=== PATIENT | female | born 1985 | race Caucasian/White ===

== ENCOUNTER 2017-03-02 13:06 | Emergency (ER) | payer MEDICAID ==
[2017-03-02] MEDS ORDERED: Acetaminophen/oxyCODONE 325-10 MG Tab PO ONE (14:36)
--- NOTE | 2017-03-02 16:10 | EDM.PDOC ---
ED HPI GENERAL MEDICAL PROBLEM - General Chief Complaint: Abdominal Pain Stated Complaint: LT SIDE PAIN Time Seen by Provider: 03/02/17 13:14 Source of Information: Reports: Patient, Other History Limitations: Reports: No Limitations - History of Present Illness INITIAL COMMENTS - FREE TEXT/NARRATIVE: This patient comes in complaining of left lower quadrant abdominal pain. This started last night. She has a history of similar pain and underwent a hysterectomy within the last couple of months. The ovaries were left intact. She refers to this as a partial hysterectomy. She did have some hemorrhagic cyst in the left ovary which caused pain afterwards. The pain she has now is very similar to what she had in the past. She denies any difficulty voiding. She denies any fever. There's been no vaginal discharge. She's having normal bowel movements. She said the pain is worse when she bends or when she is pushing at stool there is nothing that seems to make the pain better. She did feel kind of hot last night. There's been no vomiting. This patient says she is about in the middle of her monthly cycle. She describes her cycles as being irregular however. 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 - Past Surgical History Female Surgical History: Reports: Hysterectomy, Tubal Ligation Other Female Surgeries/Procedures: has a missing tubal clamp Social & Family History - Tobacco Use Smoking Status *Q: Current Every Day Smoker Years of Tobacco use: 20 Packs/Tins Daily: 0.5 ED ROS GENERAL - Review of Systems Review Of Systems: See Below Constitutional: Reports: Other (See history of present illness) HEENT: Reports: No Symptoms Respiratory: Reports: No Symptoms Cardiovascular: Reports: No Symptoms Endocrine: Reports: No Symptoms (See history of present illness) GI/Abdominal: Reports: Other (See history of present illness) : Reports: Other (See history of present illness) Musculoskeletal: Reports: No Symptoms Skin: Reports: No Symptoms Neurological: Reports: No Symptoms Psychiatric: Reports: No Symptoms ED EXAM, RENAL/ - Physical Exam Exam: See Below Exam Limited By: No Limitations General Appearance: Alert, WD/WN, Mild Distress (She looks fairly comfortable but says she's having a lot of left lower quadrant abdominal pain) Eye Exam: Bilateral Eye: Normal Inspection Ears: Normal External Exam Throat/Mouth: Normal Inspection Head: Atraumatic Neck: Normal Inspection Respiratory/Chest: Lungs Clear Cardiovascular: Regular Rate, Rhythm GI/Abdominal: Soft (He has on an abdominal binder because of his recent surgery. That was not removed), Other (I can palpate stool in the right lower quadrant which is nontender. I can palpate a little bit of stool in the descending colon which is generally nontender but when I follow it inferiorly down to the pelvic brim she has a lot of tenderness in that area. The feel like the tenderness is probably from the adnexa.) (Female) Exam: Normal External Exam, Normal Speculum Exam (No cervix seen), Adnexal Tenderness (There is moderate to severe left adnexal tenderness), Other Rectal (Female) Exam: Normal Exam (Rectal nontender), Tenderness (Tenderness is only felt in the left adnexa). No: Fecal Impaction Back Exam: Normal Inspection Extremities: Normal Inspection Neurological: Alert, Oriented, CN II-XII Intact, Normal Cognition, No Motor/ Sensory Deficits Psychiatric: Normal Affect Skin Exam: Warm, Dry Course - Vital Signs Last Recorded V/S: Last Vital Signs Temp 36.6 C 03/02/17 13:31 Pulse 66 03/02/17 13:31 Resp 14 03/02/17 13:31 BP 122/69 03/02/17 13:31 Pulse Ox 95 03/02/17 13:31 - Orders/Labs/Meds Orders: Active Orders 24 hr Category Date Time Status Pelvis Non OB Comp [US] Stat Exams 03/02/17 14:22 Taken Transvaginal Non OB [US] Stat Exams 03/02/17 Taken Labs: Laboratory Tests 03/02/17 03/02/17 03/02/17 Range/Units 13:37 14:11 14:11 WBC 10.2 (4.5-11.0) K/uL RBC 4.23 (3.30-5.50) M/uL Hgb 12.6 (12.0-15.0) g/dL Hct 37.5 (36.0-48.0) % MCV 89 (80-98) fL MCH 30 (27-31) pg MCHC 34 (32-36) % Plt Count 213 (150-400) K/uL Neut % (Auto) 72 H (36-66) % Lymph % (Auto) 21 L (24-44) % Yell % (Auto) 6 (2-6) % Eos % (Auto) 1 L (2-4) % Baso % (Auto) 1 (0-1) % Sodium 140 (140-148) mmol/L Potassium 3.6 (3.6-5.2) mmol/L Chloride 106 (100-108) mmol/L Carbon Dioxide 25 (21-32) mmol/L Anion Gap 9.0 (5.0-14.0) mmol/L BUN 12 (7-18) mg/dL Creatinine 0.7 (0.6-1.0) mg/dL Est Cr Clr Drug Dosing 105.74 mL/min Estimated GFR (MDRD) > 60 (>60) Glucose 123 H (74-106) mg/dL Calcium 8.7 (8.5-10.1) mg/dL Urine Color Yellow Urine Appearance Clear Urine pH 6.0 (4.5-8.0) Ur Specific [place] 1.015 (1.008-1.030) Urine Protein Negative (NEGATIVE) mg/dL Urine Glucose (UA) Normal (NEGATIVE) mg/dL Urine Ketones Negative (NEGATIVE) mg/dL Urine Occult Blood Negative (NEGATIVE) Urine Nitrite Negative (NEGATIVE) Urine Bilirubin Negative (NEGATIVE) Urine Urobilinogen Normal (NORMAL) mg/dL Ur Leukocyte Esterase Negative (NEGATIVE) Urine RBC 0-5 (0-5) Urine WBC 0-5 (0-5) Ur Epithelial Cells Few Amorphous Sediment Not seen Urine Bacteria Not seen Urine Mucus Not seen Meds: Medications Discontinued Medications Generic Name Dose Route Start Last Admin Trade Name Freq PRN Reason Stop Dose Admin Oxycodone/Acetaminophen 1 tab 03/02/17 14:36 03/02/17 15:15 Percocet 325-10 Mg PO 03/02/17 14:37 1 tab ONETIME ONE Administration - Radiology Interpretation Free Text/Narrative:: Ultrasound showed about a 2 cm simple cyst in the left ovary. There is nothing else to indicate the cause of her pain - Re-Assessments/Exams Free Text/Narrative Re-Assessment/Exam: 03/02/17 17:40 Labs were reviewed with the patient. She does have the ovarian cyst which possibly might be causing her pain. Other possibilities could just be from a little bit of constipation possibly even some diverticulitis although I think that's very unlikely. I think the best option right now will just be to treat her symptomatically and see how she does. I don't think a CT of the abdomen and pelvis right now is warranted. Departure - Departure Time of Disposition: 16:05 Disposition: Home, Self-Care 01 Condition: Fair Clinical Impression: Left lower quadrant abdominal tenderness - Discharge Information Instructions: Abdominal Pain, Adult, [id number] Referrals: PCP,None [Primary Care Provider] - Forms: ED Department Discharge Additional Instructions: There is a small cyst, a little less than 1 inch in diameter, and the left ovary. This could be causing the pain but this is not certain. I don't think you have diverticulitis. There is some hard stool elsewhere in the colon and sometimes this can cause pain.. If needed use the Percocet 5/325, #15 tablets, one or 2 every 4 hours as needed for pain. This medication can cause sedation and impaired driving or operating machinery. Adding ibuprofen to this may also help. It may help to use a laxative like milk of magnesia to clear out your bowels just in case this has something to do with it. If you feel like you're getting worse over the next couple of days then see your Dr. or return to the emergency department. Otherwise follow-up with your doctor on Sunday - My Orders Last 24 Hours: My Active Orders 03/02/17 Transvaginal Non OB [US] Stat 03/02/17 14:22 Pelvis Non OB Comp [US] Stat - Assessment/Plan Last 24 Hours: My Active Orders 03/02/17 Transvaginal Non OB [US] Stat 03/02/17 14:22 Pelvis Non OB Comp [US] Stat
== END 2017-03-02 16:45 | disposition home or self-care (01) ==
LOC: JP.ED 13:06
DX: R10.814 Left lower quadrant abdominal tenderness (principal); Z90.710 Acquired absence of both cervix and uterus; Z88.5 Allergy status to narcotic agent; Z88.0 Allergy status to penicillin; Z98.51 Tubal ligation status
CPT/HCPCS: 36415; 76830; 76856; 80048; 81001; 85025; 99284; A9270; 99283

== ENCOUNTER 2017-03-25 12:28 | Emergency (ER) | payer MEDICAID ==
[2017-03-25] MEDS ORDERED: Ketorolac 60 MG/2 ML SDV IM ONE (12:46)
[2017-03-25] MEDS ORDERED: Dental Adhesive 1 Tube DENT ONE (12:46)
--- NOTE | 2017-03-25 12:49 | EDM.PDOC ---
ED HPI GENERAL MEDICAL PROBLEM - General Chief Complaint: ENT Problem Stated Complaint: HAD PIECE OF TOOTH BREAK OFF Time Seen by Provider: 03/25/17 12:41 Source of Information: Reports: Patient, RN Notes Reviewed History Limitations: Reports: No Limitations - History of Present Illness INITIAL COMMENTS - FREE TEXT/NARRATIVE: 31-year-old female presents emergency department day complaint of dental pain, she broke a tooth last night is experiencing pain she is going to try and establish with the dentist upon return home - Related Data Allergies Allergy/AdvReac Type Severity Reaction Status Date / Time codeine Allergy Hives Verified 03/02/17 13:20 Penicillins Allergy Hives Verified 03/02/17 13:20 Home Meds: Home Meds Mirtazapine [Remeron] 03/02/17 [History] OLANZapine [ZyPREXA] 03/02/17 [History] Omeprazole Magnesium [Prilosec Otc] 03/02/17 [History] Sucralfate [Carafate] 03/02/17 [History] busPIRone [Buspar] 03/02/17 [History] clonazePAM [Clonazepam] 03/02/17 [History] 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 - Past Surgical History Female Surgical History: Reports: Hysterectomy, Tubal Ligation Other Female Surgeries/Procedures: has a missing tubal clamp Social & Family History - Tobacco Use Smoking Status *Q: Current Every Day Smoker Years of Tobacco use: 22 Packs/Tins Daily: 0.2 ED ROS ENT - Review of Systems Review Of Systems: See Below Constitutional: Reports: No Symptoms HEENT: Reports: Dental Pain Respiratory: Reports: No Symptoms ED EXAM, ENT - Physical Exam Exam: See Below Text/Narrative:: Mouth mucosa is moist and pink no others no erythema or exudate noted in soft palate tongue is midline uvula is midline she does have a fractured tooth #17, tender around tooth Exam Limited By: No Limitations General Appearance: Alert, WD/WN, No Apparent Distress Course - Vital Signs Last Recorded V/S: Last Vital Signs Temp 97.9 F 03/25/17 12:38 Pulse 84 03/25/17 12:38 Resp 14 03/25/17 12:38 BP 117/72 03/25/17 12:38 Pulse Ox 96 03/25/17 12:38 - Orders/Labs/Meds Meds: Medications Discontinued Medications Generic Name Dose Route Start Last Admin Trade Name Milvia PRPetey Reason Stop Dose Admin Denture Adhesive 1 applic 03/25/17 12:46 03/25/17 12:55 Dentemp Custom DENT 03/25/17 12:47 1 applic ONETIME ONE Administration Ketorolac Tromethamine 60 mg 03/25/17 12:46 03/25/17 12:55 Toradol IM 03/25/17 12:47 60 mg ONETIME ONE Administration Departure - Departure Time of Disposition: 13:36 Disposition: Home, Self-Care 01 Condition: Poor Clinical Impression: Pain, dental - Discharge Information Referrals: PCP,None [Primary Care Provider] - Forms: ED Department Discharge Additional Instructions: Continue to use ibuprofen for baseline pain control, use hydrocodone as needed for breakthrough pain, please follow-up with dentistry as soon as possible - Assessment/Plan Plan: Assessment Acuity = acute Site and laterality = fractured tooth #17 Etiology = secondary to dental caries Manifestations = pain Location of injury = Home Lab values = none Plan Toradol provided, [place] temp was applied by nursing staff, recommend follow-up dentistry as soon as possible, she received no relief from either procedure prescription written for hydrocodone 1 tablet by mouth 3 times a day when necessary total #6 she is to follow-up with dentistry as soon as possible Patient was in agreement with the plan all questions were answered, they were instructed to return to the emergency department or call for worsening symptoms. This note was dictated using [employer] voice recognition software please call with any questions.
== END 2017-03-25 13:48 | disposition home or self-care (01) ==
LOC: JP.ED 12:28
DX: K03.81 Cracked tooth (principal); K02.9 Dental caries, unspecified
CPT/HCPCS: 96372; 99283; A9270; J1885

== ENCOUNTER 2017-05-31 13:12 | Emergency (ER) | payer MEDICAID ==
--- NOTE | 2017-05-31 14:16 | EDM.PDOC ---
ED HPI GENERAL MEDICAL PROBLEM - General Chief Complaint: ENT Problem Stated Complaint: INFECTED IN GUM AREA Time Seen by Provider: 05/31/17 14:00 Source of Information: Reports: Patient, Family History Limitations: Reports: No Limitations - History of Present Illness INITIAL COMMENTS - FREE TEXT/NARRATIVE: 31-year-old female with pain and swelling in the right anterior and lateral mandible. She has an appointment with the dentist in 4 days. She had a swollen area on the front of the incisors, pushed on it and a small amount of pus came out. No fevers or chills. Onset: Gradual (Over the past 3 or 4 days) Severity: Mild Associated Symptoms: Denies: Fever/Chills, Headaches, Nausea/Vomiting Gums Pain Score (Numeric/FACES): 9 - Related Data Allergies Allergy/AdvReac Type Severity Reaction Status Date / Time codeine Allergy Hives Verified 05/31/17 13:59 Penicillins Allergy Hives Verified 05/31/17 13:59 Home Meds: Home Meds Mirtazapine [Remeron] 03/02/17 [History] OLANZapine [ZyPREXA] 03/02/17 [History] Omeprazole Magnesium [Prilosec Otc] 03/02/17 [History] Sucralfate [Carafate] 03/02/17 [History] busPIRone [Buspar] 03/02/17 [History] clonazePAM [Clonazepam] 03/02/17 [History] 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 Denies: Ear Pain, Throat Pain Respiratory: Denies: Shortness of Breath Cardiovascular: Denies: Chest Pain GI/Abdominal: Denies: Nausea, Vomiting Skin: Denies: Rash, Erythema Neurological: Denies: Headache ED EXAM, ENT - Physical Exam Exam: See Below Exam Limited By: No Limitations General Appearance: Alert, No Apparent Distress Mouth/Throat: Gum Swelling (Gum and gingival swelling along the right mandibular incisors and canines with tenderness to palpation.) Neck: No: Lymphadenopathy (R), Lymphadenopathy (L) Respiratory/Chest: No Respiratory Distress Course - Vital Signs Last Recorded V/S: Last Vital Signs Temp 97 F 05/31/17 13:52 Pulse 97 05/31/17 13:52 Resp 16 05/31/17 13:52 BP 113/80 05/31/17 13:52 Pulse Ox 97 05/31/17 13:52 - Re-Assessments/Exams Free Text/Narrative Re-Assessment/Exam: 05/31/17 16:47 Patient was placed on clindamycin 300 mg 3 times a day for the next 5 days up until her appointment with dentistry. She was also given 6 hydrocodone for extra pain control, and should return if worsening despite treatment Departure - Departure Time of Disposition: 14:33 Disposition: Home, Self-Care 01 Condition: Good Clinical Impression: Pain, dental - Discharge Information Instructions: Dental Abscess, [id number] Referrals: PCP,None [Primary Care Provider] - Forms: ED Department Discharge Care Plan Goals: Take antibiotic as prescribed, continue ibuprofen and add stronger pain medications if needed. Recheck at the dentist's office on Sunday as scheduled or return sooner if worsening.
== END 2017-05-31 14:33 | disposition home or self-care (01) ==
LOC: JP.ED 13:12
DX: K08.89 Other specified disorders of teeth and supporting structures (principal); K06.9 Disorder of gingiva and edentulous alveolar ridge, unspecified; F17.210 Nicotine dependence, cigarettes, uncomplicated; Z88.5 Allergy status to narcotic agent; Z88.1 Allergy status to other antibiotic agents
CPT/HCPCS: 99283

== ENCOUNTER 2017-06-26 19:03 | Emergency (ER) | payer MEDICAID ==
--- NOTE | 2017-06-26 21:02 | EDM.PDOC ---
ED HPI GENERAL MEDICAL PROBLEM - General Chief Complaint: Skin Complaint Stated Complaint: ABCSESS R GROIN Time Seen by Provider: 06/26/17 20:45 Source of Information: Reports: Patient History Limitations: Reports: No Limitations - History of Present Illness INITIAL COMMENTS - FREE TEXT/NARRATIVE: 31 yo female presents with tenderness to the R groin that began this evening. Has had abscesses in the past that required I&D. No fever. Onset: Today Onset Date: 06/26/17 Duration: Hour(s):, Getting Worse Location: Reports: Pelvis (R groin area.) Quality: Reports: Sharp Severity: Moderate Improves with: Reports: Other (not touching) Worsens with: Reports: Other (touching area.) Context: Reports: Other (Hx of abscesses in the past.) Associated Symptoms: Reports: No Other Symptoms Treatments SHORT GOODS DRIER: Reports: Other (see below) (none) Pelvic Pain Score (Numeric/FACES): 10 - Related Data Allergies Allergy/AdvReac Type Severity Reaction Status Date / Time codeine Allergy Hives Verified 05/31/17 13:59 Penicillins Allergy Hives Verified 05/31/17 13:59 Home Meds: Home Meds Mirtazapine [Remeron] 15 mg PO BEDTIME 03/02/17 [History] OLANZapine [ZyPREXA] 5 mg PO BEDTIME 03/02/17 [History] Omeprazole Magnesium [Prilosec Otc] 40 mg PO DAILY 03/02/17 [History] Sucralfate [Carafate] 1 gm PO BID 03/02/17 [History] busPIRone [Buspar] 10 mg PO DAILY 03/02/17 [History] clonazePAM [Clonazepam] 0.5 mg PO BID 03/02/17 [History] Estradiol 1 mg PO DAILY 06/26/17 [History] 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 - Past Surgical History Female Surgical History: Reports: Hysterectomy, Tubal Ligation Other Female Surgeries/Procedures: has a missing tubal clamp Social & Family History - Tobacco Use Smoking Status *Q: Current Every Day Smoker Years of Tobacco use: 22 Packs/Tins Daily: 0.5 - Caffeine Use Caffeine Use: Reports: Coffee, Soda, Tea - Recreational Drug Use Recreational Drug Use: No ED ROS GENERAL - Review of Systems Review Of Systems: See Below Constitutional: Reports: No Symptoms HEENT: Reports: No Symptoms Respiratory: Reports: No Symptoms Cardiovascular: Reports: No Symptoms GI/Abdominal: Reports: No Symptoms : Reports: No Symptoms Musculoskeletal: Reports: No Symptoms Skin: Reports: Erythema, Lumps (R groin area. ) Neurological: Reports: No Symptoms ED EXAM, SKIN/RASH Exam: See Below Exam Limited By: No Limitations General Appearance: Alert, WD/WN, No Apparent Distress Neurological: Alert, Oriented, CN II-XII Intact, Normal Cognition, No Motor/ Sensory Deficits Psychiatric: Normal Affect, Normal Mood Skin: Warm, Dry, Intact, Erythema (minimal) Location, Skin: Genital (R labia majora) Characteristics: Other (1.5 cm abscess, early, not fluctuant) Associated features: Tenderness, Induration Lymphatic: No Adenopathy Course - Vital Signs Last Recorded V/S: Last Vital Signs Temp 37.1 C 06/26/17 20:39 Pulse 72 06/26/17 20:39 Resp 16 06/26/17 20:39 BP 115/77 06/26/17 20:39 Pulse Ox 97 06/26/17 20:39 Departure - Departure Time of Disposition: 21:05 Disposition: Home, Self-Care 01 Condition: Good Clinical Impression: Abscess - Discharge Information Instructions: Skin Abscess Referrals: Yenni Townsend [facility] [Primary Care Provider] - Forms: ED Department Discharge Additional Instructions: Apply warm, moist compresses to area several times a day. Wear boxers to reduce pressure on area. F/U in clinic in 2 days to see about draining. May add ibuprofen 400 mg every 6 hrs to the [place] for added pain relief.
== END 2017-06-26 21:11 | disposition home or self-care (01) ==
LOC: JP.ED 19:03
DX: L02.214 Cutaneous abscess of groin (principal); Z88.5 Allergy status to narcotic agent; Z88.0 Allergy status to penicillin; Z79.899 Other long term (current) drug therapy; F17.210 Nicotine dependence, cigarettes, uncomplicated
CPT/HCPCS: 99282; 99283